=== PATIENT | female | born 1965 | race American Indian/Alaskan Native ===

== ENCOUNTER 2017-03-23 23:57 | Emergency (ER) | payer OTHER ==
[2017-03-24] MEDS ORDERED: PEPCID IV ONE (02:25)
[2017-03-24] MEDS ORDERED: NACL 0.9% 1000 ML 1,000 ML IV ONE (02:25)
[2017-03-24] MEDS ORDERED: BENADRYL IV ONE (02:25)
--- NOTE | 2017-03-24 02:25 | Emergency Department Report ---
ED Allergic Reaction HPI - General Chief complaint: Allergic Reaction Stated complaint: ALLERGIC REACTION Time Seen by Provider: 03/24/17 02:24 Source: patient, EMS Mode of arrival: Stretcher Limitations: Language Barrier - History of Present Illness Initial Comments: 51 YO FEMALE WHO WAS EATING MILK WITH HER CEREAL AND THEN BEGAN HAVING AN ALLERGIC REACTION. PT HAS THE SAME REACTION TO THIS SPECIAL MILK 10 YRS AGO AND HAD THIS SAME ALLERGIC REACTION Complaint: allergic reaction -: Sudden, This evening Exposure: food Symptoms: rash, itching, difficulty swallowing Severity: moderate - Related Data Previous Rx's Medication Instructions Recorded Last Taken Type Dexamethasone 20 mg PO ONCE #1 tablet 03/24/17 Unknown Rx Ranitidine HCl [Acid Control] 150 mg PO BID #10 tablet 03/24/17 Unknown Rx diphenhydrAMINE [Benadryl CAP] 50 mg PO Q8HR PRN #20 capsule 03/24/17 Unknown Rx Allergies Allergy/AdvReac Type Severity Reaction Status Date / Time No Known Allergies Allergy Unverified 09/01/14 11:07 ED Review of Systems ROS: Stated complaint: ALLERGIC REACTION Other details as noted in HPI Constitutional: denies: chills, fever Eyes: denies: eye pain, eye discharge, vision change ENT: other (THROAT CLOSING). denies: ear pain, throat pain Respiratory: denies: cough, shortness of breath, wheezing Cardiovascular: denies: chest pain, palpitations Endocrine: no symptoms reported Gastrointestinal: denies: abdominal pain, nausea, diarrhea Genitourinary: denies: urgency, dysuria, discharge Musculoskeletal: denies: back pain, joint swelling, arthralgia Skin: rash, pruritus. denies: lesions Neurological: denies: headache, weakness, paresthesias Psychiatric: denies: anxiety, depression Hematological/Lymphatic: denies: easy bleeding, easy bruising ED Past Medical Hx - Past Medical History Previous Medical History?: Yes Hx Diabetes: Yes - Surgical History Past Surgical History?: No - Social History Smoking Status: Never Smoker Substance Use Type: None - Medications Home Medications: Home Medications Medication Instructions Recorded Confirmed Last Taken Type Dexamethasone 20 mg PO ONCE #1 tablet 03/24/17 Unknown Rx Ranitidine HCl [Acid Control] 150 mg PO BID #10 tablet 03/24/17 Unknown Rx diphenhydrAMINE [Benadryl CAP] 50 mg PO Q8HR PRN #20 capsule 03/24/17 Unknown Rx ED Physical Exam - General Limitations: Language Barrier (SPEAKS A FOREIGN LANGUAGE) General appearance: obese, other (LOOKS SLEEPY) - Head Head exam: Present: atraumatic, normocephalic - Eye Eye exam: Present: normal appearance, EOMI - ENT ENT exam: Present: mucous membranes moist - Neck Neck exam: Present: normal inspection, full ROM - Respiratory Respiratory exam: Present: normal lung sounds bilaterally. Absent: respiratory distress - Cardiovascular Cardiovascular Exam: Present: regular rate, normal rhythm. Absent: systolic murmur, diastolic murmur, rubs, gallop - GI/Abdominal GI/Abdominal exam: Present: soft, normal bowel sounds - Rectal Rectal exam: Present: deferred - Extremities Exam Extremities exam: Present: normal inspection, full ROM - Back Exam Back exam: Present: normal inspection, full ROM, other ( ANGELITA) - Neurological Exam Neurological exam: Present: alert, oriented X3, CN II-XII intact - Psychiatric Psychiatric exam: Present: normal affect, normal mood - Skin Skin exam: Present: warm, dry, intact, normal color. Absent: rash ED Course Vital Signs 03/24/17 03/24/17 01:15 03:07 Temperature 98 F 98 F Pulse Rate 83 87 Respiratory 18 Rate Blood Pressure 130/79 Blood Pressure 132/77 [Left] O2 Sat by Pulse 100 98 Oximetry Critical care attestation.: If time is entered above; I have spent that time in minutes in the direct care of this critically ill patient, excluding procedure time. ED Disposition Clinical Impression: Obesity Allergic reaction Qualifiers: Encounter type: initial encounter Qualified Code(s): T78.40XA - Allergy, unspecified, initial encounter Disposition: -01 TO HOME OR SELFCARE Is pt being admited?: No Does the pt Need Aspirin: No Condition: Stable Instructions: Allergies (ED) Prescriptions: Dexamethasone 20 mg PO ONCE #1 tablet diphenhydrAMINE [Benadryl CAP] 50 mg PO Q8HR PRN #20 capsule PRN Reason: ANTIHISTAMINE Ranitidine HCl [Acid Control] 150 mg PO BID #10 tablet Referrals: JANICE STILES MD [Primary Care Provider] - 3-5 Days Time of Disposition: 04:40
[2017-03-24 03:08] VITALS: BP 132/77
== END 2017-03-24 06:11 | disposition home or self-care (01) ==
LOC: ED 23:57
DX: T78.1XXA Other adverse food reactions, not elsewhere classified, initial encounter (principal); E11.9 Type 2 diabetes mellitus without complications; E66.9 Obesity, unspecified; X58.XXXA Exposure to other specified factors, initial encounter
CPT/HCPCS: 96361; 96374; 96375; 99283; J1200; J2930; J7030

== ENCOUNTER 2017-06-26 10:43 | Outpatient (CLI) | payer OTHER ==
--- NOTE | 2017-06-26 11:57 | XRay Report ---
CHEST 2 VIEWS INDICATION: Cough, surgical clearance. COMPARISON: None similar. FINDINGS: PA and lateral chest radiographs demonstrate normal cardiomediastinal silhouette. Clear lungs. Mild bony degenerative changes. Slight osteopenia not excluded. CONCLUSION: No acute chest process, as described. Thank you for the opportunity to participate in this patient's care.
== END 2017-06-26 10:44 | disposition home or self-care (01) ==
LOC: ECHO 10:43
PROVIDERS: ATTEND Internal Medicine Hematology & Oncology
DX: Z01.811 Encounter for preprocedural respiratory examination (principal); R05 Cough; M47.894 Other spondylosis, thoracic region; M85.88 Other specified disorders of bone density and structure, other site
CPT/HCPCS: 71046; 93005; 93010

== ENCOUNTER 2018-01-12 09:07 | Outpatient (CLI) | payer OTHER | END 2018-01-12 09:08 | disposition home or self-care (01) | LOC: ECHO 09:07 | PROVIDERS: ATTEND Internal Medicine Hematology & Oncology | DX: I51.7 Cardiomegaly (principal) | CPT/HCPCS: 93005; 93010; 93306 ==

== ENCOUNTER 2020-08-22 10:15 | Outpatient (CLI) | payer OTHER | END 2020-08-22 10:16 | disposition home or self-care (01) | LOC: NM 10:15 | DX: M89.8X9 Other specified disorders of bone, unspecified site (principal) | CPT/HCPCS: 78306; A9503 ==

== ENCOUNTER 2021-03-11 09:57 | Outpatient (CLI) | payer OTHER ==
--- NOTE | 2021-03-11 13:40 | Cat Scan Report ---
CT ABDOMEN AND PELVIS WITHOUT CONTRAST INDICATION / CLINICAL INFORMATION: ABDOMINAL PAIN. TECHNIQUE: Axial CT images were obtained through the abdomen and pelvis without IV contrast. All CT scans at this location are performed using CT dose reduction for ALARA by means of automated exposure control. COMPARISON: None available. FINDINGS: LOWER CHEST: No significant abnormality. LIVER: No significant abnormality. GALLBLADDER: No significant abnormality. PANCREAS: No significant abnormality. SPLEEN: No significant abnormality. ADRENALS: No significant abnormality. RIGHT KIDNEY / URETER: No significant abnormality. LEFT KIDNEY / URETER: No significant abnormality. STOMACH / SMALL BOWEL: No significant abnormality. COLON: Diverticulosis without acute inflammation. APPENDIX: No significant abnormality. PERITONEUM: No free fluid, free air or organized collection. LYMPH NODES: No significant adenopathy. AORTA / ARTERIES/ VEINS: No significant abnormality. URINARY BLADDER: No significant abnormality. REPRODUCTIVE ORGANS: No significant abnormality. ADDITIONAL FINDINGS: None. SKELETAL SYSTEM: No significant abnormality. IMPRESSION: 1. No acute abnormality. Signer Name: Braulio Gutierres MD Signed: 03/11/2021 1:36 PM Workstation Name: [email or web address]
== END 2021-03-11 09:58 | disposition home or self-care (01) ==
LOC: CT 09:57
PROVIDERS: ATTEND Internal Medicine Hematology & Oncology
DX: K57.30 Diverticulosis of large intestine without perforation or abscess without bleeding (principal)
CPT/HCPCS: 74176

== ENCOUNTER 2021-03-27 10:02 | Outpatient (CLI) | payer OTHER ==
--- NOTE | 2021-03-27 11:06 | Mammography Report ---
DIGITAL SCREENING MAMMOGRAM WITH CAD, 03/27/2021 CLINICAL INFORMATION / INDICATION: Routine screening mammography. SCREENING MAMMOGRAM TECHNIQUE: Digital bilateral 2D mammography was obtained in the craniocaudal and mediolateral obliqu e projections. This examination was interpreted with the benefit of Computer-Aided Detection analysis . COMPARISON: 07/21/12, 01/23/16 FINDINGS: Breast Density: The breasts are almost entirely fatty. No dominant mass, suspicious calcifications, or architectural distortion in either breast. IMPRESSION: No mammographic evidence of malignancy. Follow up recommendation: Routine yearly BI-RADS Category 1: NEGATIVE A "normal" or negative report should not discourage follow up or biopsy of a clinically significant f inding. A written summary of these findings will be mailed to the patient. The patient will be entered into a mammography reporting system which will generate a reminder letter for the patient's next appointmen t at the appropriate interval. The [employer] recommends yearly mammograms starting at age 40 and continuing as l carolyn as a woman is in good health. Breast MRI is recommended for women with an approximate 20-25% or greater lifetime risk of breast cancer, including women with a strong family history of breast or ova gabriela cancer or who have been treated for Hodgkin's disease. Signer Name: Maggie Rosen MD Signed: 03/27/2021 11:01 AM Workstation Name: [id number]
== END 2021-03-27 10:03 | disposition home or self-care (01) ==
LOC: MAMMO 10:02
PROVIDERS: ATTEND Internal Medicine Hematology & Oncology
DX: Z12.31 Encounter for screening mammogram for malignant neoplasm of breast (principal)
CPT/HCPCS: 77067

== ENCOUNTER 2021-07-18 09:19 | Outpatient (CLI) | payer OTHER ==
--- NOTE | 2021-07-18 12:00 | Mammography Report ---
DEXA BONE DENSITY SCAN INDICATION / CLINICAL INFORMATION: OSTEOPOROSIS M85.80. 56 years Female COMPARISON: None available. LUMBAR SPINE, L1-L4: - Bone mineral density (BMD) = 1.037 g/cm2. - T-score = -0.1 - Change (%) since most recent prior (if available): None available. LEFT HIP, NECK : - Bone mineral density (BMD) = 0.870 g/cm2. - T-score = 0.2 - Change (%) since most recent prior (if available): None available. IMPRESSION: 1. WHO Classification: Normal bone density. Fracture Risk: Not Increased. 2. 10-Year Fracture Risk (FRAX) = Major Osteoporotic Not reported.% / Hip: Not reported.% FRAX generally not reported for patients with normal or osteoporotic BMD, in els-ktszxur-qciklmi rand ents younger than age 50, or in patients undergoing pharmacotherapy BMD Reporting Guidelines (ISCD, 2015) BMD Reporting in Postmenopausal Women and in Men Age 50 and Older - T-scores are preferred. - The WHO densitometric classification is applicable. BMD Reporting in Females Prior to Menopause and in Males Younger Than Age 50 - Z-scores, not T-scores, are preferred. This is particularly important in children. - A Z-score of -2.0 or lower is defined as below the expected range for age, and a Z-score above -2.0 is within the expected range for age. - Osteoporosis cannot be diagnosed in men under age 50 on the basis of BMD alone. - The WHO diagnostic criteria may be applied to women in the menopausal transition. http://www.iscd.org/official-positions/4338-pgxn-eqgxocym-positions-adult/ Signer Name: Maggie Rosen MD Signed: 07/18/2021 11:56 AM Workstation Name: [id number]
== END 2021-07-18 09:20 | disposition home or self-care (01) ==
LOC: MAMMO 09:19
PROVIDERS: ATTEND Internal Medicine Hematology & Oncology
DX: M85.80 Other specified disorders of bone density and structure, unspecified site (principal)
CPT/HCPCS: 77080

== ENCOUNTER 2021-07-31 12:48 | Outpatient (CLI) | payer OTHER ==
--- NOTE | 2021-07-31 14:48 | XRay Report ---
XR abdomen 1V ap INDICATION / CLINICAL INFORMATION: ABDOMINAL PAIN. COMPARISON: None available. TECHNIQUE: One view supine AP abdomen. FINDINGS: TUBES / LINES: None. BOWEL GAS PATTERN: No significant abnormality. FREE AIR / EXTRALUMINAL GAS: None seen. ADDITIONAL FINDINGS: Small punctate density adjacent the right transverse process of L3 possibly repr esents ureteral stone. This finding is seen only on one view. IMPRESSION: 1. Right-sided ureteral stone not excluded. Correlation to urinalysis may be useful. Signer Name: Jose G Santos II, MD Signed: 07/31/2021 2:38 PM Workstation Name: [id number]
== END 2021-07-31 12:49 | disposition home or self-care (01) ==
LOC: XRAY 12:48
PROVIDERS: ATTEND Internal Medicine Hematology & Oncology
DX: N20.1 Calculus of ureter (principal)
CPT/HCPCS: 74018

== ENCOUNTER 2021-09-03 10:29 | Outpatient (CLI) | payer OTHER ==
--- NOTE | 2021-09-03 11:30 | XRay Report ---
ABDOMEN 1 VIEW(S) INDICATION / CLINICAL INFORMATION: ABD PAIN. COMPARISON: 07/31/2021 FINDINGS: TUBES / LINES: None. BOWEL GAS PATTERN: No significant abnormality. There is moderate to large fecal matter throughout the colon. FREE AIR / EXTRALUMINAL GAS: None seen. ADDITIONAL FINDINGS: Previously described right abdominal calcification is not clearly demonstrated o n today's exam. IMPRESSION: Constipation. No acute abnormality identified. Signer Name: Robinson Farias Jr, MD Signed: 09/03/2021 11:22 AM Workstation Name: [id number]
--- NOTE | 2021-09-03 12:38 | Ultrasound Report ---
ULTRASOUND ABDOMEN, COMPLETE INDICATION / CLINICAL INFORMATION: abd pain. COMPARISON: CT 03/11/2021 FINDINGS: PANCREAS: The proximal pancreas is within normal limits. The body and tail are not well seen. ABDOMINAL AORTA: No significant abnormality. IVC: No significant abnormality. LIVER: The liver is diffusely echogenic. The main portal vein is patent. Liver measures approximately 15.4 cm. GALLBLADDER: No significant abnormality. Negative sonographic Guido sign. BILE DUCTS: No significant abnormality. Common bile duct measures 6 mm. KIDNEYS: Right: No significant abnormality. Left: No significant abnormality. SPLEEN: No significant abnormality. FREE FLUID: None. ADDITIONAL FINDINGS: None. IMPRESSION: 1. Hepatic steatosis. Signer Name: Elia Degroot MD Signed: 09/03/2021 12:34 PM Workstation Name: [id number]
--- NOTE | 2021-09-03 16:02 | Ultrasound Report ---
ULTRASOUND PELVIS INDICATION / CLINICAL INFORMATION: Pelvic pain. TECHNIQUE: Transabdominal and Transvaginal. Duplex Color Doppler used: Yes. COMPARISON: CT abdomen/pelvis 03/11/2021. FINDINGS: UTERUS: Surgically absent. RIGHT ADNEXA: The right ovary is not visualized. No significant adnexal abnormality. LEFT ADNEXA: The left ovary is not visualized. No significant adnexal abnormality. URINARY BLADDER: No significant abnormality. FREE FLUID: None. ADDITIONAL FINDINGS: None. IMPRESSION: 1. Prior hysterectomy. The ovaries are not visualized secondary to overlying bowel gas. 2. No significant sonographic abnormality. Scribed by: Maite Garrison RDMS, VINNIE DOAN Scribed: 09/03/2021 2:14 PM I have reviewed the images, agree with this report, and edited this report as needed. Signer Name: Adrian Sarabia MD Signed: 09/03/2021 3:58 PM Workstation Name: [email or web address]
== END 2021-09-03 10:30 | disposition home or self-care (01) ==
LOC: US 10:29
PROVIDERS: ATTEND Internal Medicine Hematology & Oncology
DX: K76.0 Fatty (change of) liver, not elsewhere classified (principal); K56.41 Fecal impaction; R10.30 Lower abdominal pain, unspecified; R10.2 Pelvic and perineal pain; Z90.710 Acquired absence of both cervix and uterus
CPT/HCPCS: 74018; 76700; 76830; 76856

== ENCOUNTER 2021-10-04 10:03 | Outpatient (CLI) | payer OTHER ==
--- NOTE | 2021-10-04 11:48 | Cat Scan Report ---
CT ABDOMEN AND PELVIS WITHOUT CONTRAST HISTORY: R10.9 N20.0. Left-sided abdominal pain since July 2021. COMPARISON: 03/11/2021 TECHNIQUE: Axial CT images were obtained through the abdomen and pelvis without IV contrast. Sagittal and coronal reformatted images. All CT scans at this location are performed using CT dose reduction for ALARA by means of automated exposure control. FINDINGS: CT ABDOMEN: Lung Bases: Clear. Liver: Stable mild hepatic steatosis. No enlargement or focal liver lesion. Biliary: No significant abnormality. Spleen: No significant abnormality. Unenlarged. Pancreas: No significant abnormality. Adrenals: No significant abnormality. Kidneys: No significant abnormality. Lymphatics: No lymphadenopathy. Vasculature: No significant abnormality. Bowel/Peritoneum: No significant abnormality. No free air. No free fluid. There is moderate fecal ret ention in the colon. Normal appendix. CT PELVIS: : The bladder and distal ureters are unremarkable. Stable hysterectomy changes. Osseous Structures: Stable mild thoracolumbar spondylosis. Nothing acute. Additional Findings: None IMPRESSION: No acute process. No clear explanation for left abdominal pain. No nephrolithiasis. Mild to moderate constipation. Mild hepatic steatosis. Signer Name: Robinson Farias Jr, MD Signed: 10/04/2021 11:43 AM Workstation Name: [id number]
== END 2021-10-04 10:04 | disposition home or self-care (01) ==
LOC: CT 10:03
PROVIDERS: ATTEND Internal Medicine Hematology & Oncology
DX: K76.0 Fatty (change of) liver, not elsewhere classified (principal); N20.0 Calculus of kidney; R15.9 Full incontinence of feces; K59.00 Constipation, unspecified; M47.815 Spondylosis without myelopathy or radiculopathy, thoracolumbar region; Z90.710 Acquired absence of both cervix and uterus
CPT/HCPCS: 74176

== ENCOUNTER 2021-11-14 09:06 | Outpatient (CLI) | payer OTHER ==
--- NOTE | 2021-11-14 11:09 | Fluoroscopy Report ---
BARIUM SWALLOW Indication: R13.19. Technique: Single and double contrast barium technique utilized to evaluate the esophagus. FINDINGS: To begin the exam, swallowing was evaluated in the lateral position under direct fluorosco py. Swallowing was normal. No mucosal irregularity, mass, mass effect, or critical stenosis. Occasional tertiary contractions in the mid to distal esophagus were witnessed during this exam consistent with mild esophageal dysmot ility. No hiatal hernia or gastroesophageal reflux was witnessed. IMPRESSION: No anatomical abnormality is detected. Mild esophageal dysmotility is suspected. Fluoroscopic time: 2.2 minutes Number of fluoroscopic images: 42 Signer Name: Robinson Farias Jr, MD Signed: 11/14/2021 11:05 AM Workstation Name: [id number]
== END 2021-11-14 09:07 | disposition home or self-care (01) ==
LOC: FLUORO 09:06
DX: R13.19 Other dysphagia (principal)
CPT/HCPCS: 74220